=== PATIENT | female | born 1990 | race African-American/Black ===

== ENCOUNTER 2018-12-13 09:47 | Emergency (ER) | payer OTHER ==
[~2018-12-13] VITALS: Ht 170.2 cm; Wt 67.6 kg
[~2018-12-13 09:47] MED LIST: IBUPROFEN 600600 M1 PO; NAPROSYN500 MG PO
[2018-12-13 10:44] LABS: URINE BILIRUBIN NEGATIVE (Negative); URINE BLOOD NEGATIVE (Negative); URINE CLARITY CLEAR; URINE COLOR YELLOW; URINE GLUCOSE-RANDOM* NEGATIVE (Negative); URINE KETONES 3+ (Negative); URINE NITRITE-REFLEX NEGATIVE (Negative); URINE PROTEIN (DIPSTICK) NEGATIVE (Negative); URINE UROBILINOGEN 0.2 E.U./dl (0.2-1.0)
[2018-12-13 10:50] LABS: URINE LEUKOCYTES-REFLEX 1+ (Negative); URINE REDUCING SUBSTANCE NEGATIVE
[2018-12-13 10:55] LABS: CASTS None Seen /LPF (None Seen); MUCUS >6 Heavy strn/LPF (None Seen); SQUAMOUS >10 Many /LPF (0-3)
[2018-12-13 10:56] LABS: BACTERIA-REFLEX 1-9 Few /HPF (None Seen); CRYSTALS None Seen /LPF (None Seen); URINE RBC None Seen /HPF (0-2); URINE WBC-REFLEX 0-5 Rare /HPF (0-5)
[2018-12-13 10:58] VITALS: BP 123/82
== END 2018-12-13 10:58 | disposition home or self-care (01) ==
LOC: ER 09:47
PROVIDERS: Emergency Medicine
DX: N89.8 Other specified noninflammatory disorders of vagina (principal); Z20.2 Contact with and (suspected) exposure to infections with a predominantly sexual mode of transmission